=== PATIENT | male | born 1940 | race Caucasian/White ===

== ENCOUNTER 2016-07-17 10:27 | Outpatient (CLI) | payer OTHER ==
--- NOTE | 2016-07-17 12:23 | DIAGNOSTIC IMAGING REPORT ---
PROCEDURE: XR BONE LENGTH SCANOGRAM INDICATION: VEGA/NEPHEW PROTOCOL. Vega and Nephew protocol for preop knee replacement. TECHNIQUE: Limited MRI of the knee was performed with high-resolution PD sagittal images. In addition, AP radiographs of the lower extremity were obtained with scanogram markers. Diagnostic interpretation is not provided. IMPRESSION: 1. Preoperative Vega and Nephew protocol for knee prosthesis.
[2016-08-23] MEDS ORDERED: LEVOTHYROXINE88 MCG PO (14:55)
[2016-08-23] MEDS ORDERED: VENLAFAXINE HCL75 M1 PO (14:56)
[2016-08-23] MEDS ORDERED: FLOMAX0.4 MG PO (15:08)
[2016-08-23] MEDS ORDERED: ATORVASTATIN CA40 MG PO (16:05)
== END 2016-07-17 23:00 ==
LOC: MRI SRH 10:27
DX: M17.12 Unilateral primary osteoarthritis, left knee (principal)

== ENCOUNTER 2016-07-25 09:02 | Outpatient (CLI) | payer OTHER ==
--- NOTE | 2016-07-25 10:21 | DIAGNOSTIC IMAGING REPORT ---
PROCEDURE: XR BONE LENGTH SCANOGRAM INDICATION: OA LT KNEE,REDO Vega and Nephew protocol for preop knee replacement. TECHNIQUE: AP radiographs of the lower extremity were obtained with scanogram markers. Diagnostic interpretation is not provided. IMPRESSION: 1. Redo radiographs for Vega and Nephew protocol.
[2016-08-23] MEDS ORDERED: LEVOTHYROXINE88 MCG PO (14:55)
[2016-08-23] MEDS ORDERED: VENLAFAXINE HCL75 M1 PO (14:56)
[2016-08-23] MEDS ORDERED: FLOMAX0.4 MG PO (15:08)
[2016-08-23] MEDS ORDERED: ATORVASTATIN CA40 MG PO (16:05)
== END 2016-07-25 23:00 ==
LOC: XR SRH 09:02
DX: Z01.818 Encounter for other preprocedural examination (principal); M17.12 Unilateral primary osteoarthritis, left knee

== ENCOUNTER 2016-08-16 12:05 | Outpatient (CLI) | payer OTHER ==
--- NOTE | 2016-08-16 12:37 | DIAGNOSTIC IMAGING REPORT ---
PROCEDURE: XR CHEST 2 VIEW INDICATION: PRE OP TECHNIQUE: PA and lateral views. COMPARISON: Abdominal CT 08/21/2006 FINDINGS: Lungs are clear. Heart and mediastinum are normal. Thorax is normal. There is scarring at the left costophrenic angle which was present on the [address] CT. IMPRESSION: 1. Negative chest.
[2016-08-23] MEDS ORDERED: LEVOTHYROXINE88 MCG PO (14:55)
[2016-08-23] MEDS ORDERED: VENLAFAXINE HCL75 M1 PO (14:56)
[2016-08-23] MEDS ORDERED: FLOMAX0.4 MG PO (15:08)
[2016-08-23] MEDS ORDERED: ATORVASTATIN CA40 MG PO (16:05)
== END 2016-08-16 23:00 ==
LOC: RT SRH 12:05
DX: Z01.810 Encounter for preprocedural cardiovascular examination (principal); Z01.811 Encounter for preprocedural respiratory examination; R94.31 Abnormal electrocardiogram [ECG] [EKG]

== ENCOUNTER 2016-08-27 06:20 | Inpatient (IN) | payer OTHER ==
[~2016-08-27] VITALS: Ht 175.3 cm; Wt 128.3 kg
[2016-08-27] VITALS (8 sets, daily range): BP systolic 128–160; BP diastolic 68–92
[~2016-08-27 06:20] MED LIST: ATORVASTATIN CA40 MG PO; FLOMAX0.4 MG PO; LEVOTHYROXINE88 MCG PO; VENLAFAXINE HCL75 M1 PO
--- NOTE | 2016-08-27 10:21 | Postoperative Progress Note ---
Postop Progress Note Preoperate Diagnosis: OA left knee Postoperative Diagnosis: Same Surgeon: Jeffrey Cowan MD Anesthesia: General ETT Findings: OA left knee Procedure: Left TKA Complications? No Condition: Stable EBL: 150cc Blood Administered: 0 Specimen(s) removed? Yes Specimen removed/disposition: Bone and tissue left knee Grafts or Implants? Yes Graft/Implant type: TKA . (See nursing notes for details of grafts/implants)
--- NOTE | 2016-08-27 10:47 | DIAGNOSTIC IMAGING REPORT ---
PROCEDURE: XR KNEE 1 OR 2 VIEWS - LEFT INDICATION: TKA TECHNIQUE: AP and lateral views. COMPARISON: Left knee x-ray 07/12/2016. FINDINGS: Interval total knee arthroplasty with satisfactory positioning and alignment. Postsurgical changes of the soft tissues. Extensive atherosclerosis. IMPRESSION: 1. Left knee arthroplasty with normal postoperative appearance
--- NOTE | 2016-08-27 14:09 | OPERATIVE REPORT ---
DATE OF SURGERY: 08/27/2016 SURGEON: DELMI MUJICA MD PREOPERATIVE DIAGNOSIS: 1. Arthritis, left knee POSTOPERATIVE DIAGNOSIS: 1. Arthritis, left knee PROCEDURE PERFORMED: 1. The operation proposed was a left knee replacement and the operation performed the same. ESTIMATED BLOOD LOSS: About 150 mL. COMPLICATIONS: None. PATHOLOGY SPECIMENS: None. SURGICAL TECHNIQUE: The patient was taken to the operating room, where he was given a spinal anesthetic and some IV sedation and the tourniquet applied to the left thigh. The leg was prepped and draped in the usual sterile fashion. A longitudinal incision made directly anteriorly over the knee and carried down through subcutaneous tissue. A standard medial parapatellar approach to the knee was performed, the patella dislocated to the lateral side and the patient had exposure of the knee. The major portion of the infrapatellar fat pad was excised. The anterior cruciate ligament was excised. The patient had a cutting block placed on the distal femur, pinned in place and then we cut the distal femur using the supplied blocks from the [employer]. The patient then had the appropriate #6 distal femoral cutting block placed into position and anterior and posterior and chamfer cuts were made as well. The patient then had removal of the cutting block and then the resected pieces of bone. We placed a cutting block on the tibia and made the tibial cut and then placed the #7 size tibial baseplate into position and resected the osteophytes from the medial side and made the drill hole and cut out for the stem and fins with the supplied special step drill and osteotome from the [employer] set. We then went on to do a trial reduction and I could see that we would easily get him into full flexion, full extension. He was adequately stable with the [address] and we got the actual component, exsanguinated the limb, inflated the tourniquet to 350 mmHg, resected the patella, sized the patella. It was found that he was a 35, possibly 38 (I don't remember for sure) size patella. We made the drill hole for the patellar component, undercut the hole slightly with a small curette and then chamfered the margins medial and lateral with the patella where it was wider than it was tall to prevent impingement of the bone on the prosthetic femur. We removed the menisci in their entirety, then cleaned the cut surfaces of the bone and dried them thoroughly. Methylmethacrylate cement was vacuum mixed, placed on the tibia, down the hole for the tibial stem, and on the backside of the tibial component. It was seated in place. Extruded cement from around the margins removed. More cement was placed on the back side of the femoral component and on the cut surface of the femur, and the femoral component was seated in place and a 9 mm trial insert was placed on the tibial base plate. He was put in extension. The cleaned and dried surface of the patella then had some of the same methylmethacrylate cement placed on it and down in the drill holes and more cement was placed on the backside of the patellar component. It was clamped into position and extruded cement removed from around the margins and the knee held in extension with the clamp in place until the cement hardened. Once it did, we went back and checked and everything looked to be well. We got the actual 11 mm insert and placed it in position on the tibial baseplate and with this again he had good stability, good range of motion with full extension easily possible and flexion to at least 130 degrees. The patellar tracking was perfect. We closed then with the knee in about 50 to 60 degrees of flexion using #2 nonabsorbable braided suture, running from top to bottom and then oversewing with interrupted [id number] sutures along the medial margin of the patella. The torniquet was deflated, then the closure completed with 2-0 Vicryl running suture for the subcutaneous layer and subcuticular 3-0 Vicryl suture for the skin. The patient was injected prior to closure with a combination of local anesthetic and Decadron - Dr. Sawant's mixture, and after the closure was complete, he was dressed with Xeroform and ABD pads and wrapped with sterile Josr bandages loosely applied. He was awakened and taken to the recovery room in stable condition. Tissue removed were bone and tissue removed from the left knee including the cut surfaces of the femur, tibia, and patella. The menisci in their entirety, both medial and lateral, and the anterior cruciate ligament and the infrapatellar fat pad.
[2016-08-28 01:41] VITALS: BP 153/92
--- NOTE | 2016-08-28 04:01 | Progress Note ---
Subjective General VSS Afeb BP moderately elevated. Patient's pain is mild to moderate and he was able to walk to the BR with minimal assist just now. I was called because RN and Dr Kathleen were both unable to get a pulse and the O2 sats were unreliable. I too was unable to get a pulse in the LLE although he has intact light touch sensation and active DF/PF of the toes. Passive extension is not painful and the compartments are soft. His knee bandage was not unduly tight and the compartments are soft with minimal pedal edema. CT angiogram is ordered and about to be done. Will get vascular surgery consult/transfer depending on the results of the angiogram.
--- NOTE | 2016-08-28 05:10 | Progress Note ---
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 Patient's foot is actually warmer now then when I came in and he has light touch sensation and active DF/PF of the toes yet with only mild pain. Dr Cunningham was contacted and will consult as well.
[2016-08-28 07:00] VITALS: BP 157/76
--- NOTE | 2016-08-28 09:24 | Progress Note ---
Subjective General VSS Afeb BP 157/76 WBC 12.2 HGB 12.4 Platelets 149 BUN 26 CR 1.4 FBS 130 Exam unchanged. No pedal pulses. Foot mildly cool. Sensation and motor function intact. Minimal pedal edema. Bandage dry and clean. Patient seen by Dr gunter and rec transfer to vascular surgery at [facility]. Patient is willing. We will plan for transfer as soon as there an accepting physician.
--- NOTE | 2016-08-28 09:24 | Progress Note ---
Subjective General VSS Afeb BP 157/76 WBC 12.2 HGB 12.4 Platelets 149 BUN 26 CR 1.4 FBS 130 Exam unchanged. No pedal pulses. Foot mildly cool. Sensation and motor function intact. Minimal pedal edema. Bandage dry and clean. Patient seen by Dr gunter and rec transfer to vascular surgery at [facility]. Patient is willing. We will plan for transfer as soon as there an accepting physician.
--- NOTE | 2016-08-28 10:04 | DISCHARGE SUMMARY ---
ADMIT DATE: 08/27/2016 DISCHARGE DATE: 08/28/2016 DISCHARGE DIAGNOSIS: 1. BRIEF HISTORY: The patient was admitted to the hospital on 08/27/2016 for knee replacement surgery. HOSPITAL COURSE: He has a history of osteoarthritis and underwent a surgery on the day of admission without difficulty. Postoperatively, he had adequate pulses to the left lower extremity, but during the night, the nurse contacted first Dr. Kathleen and then Dr. Kathleen myself that they had loss of pulses to the left lower extremity and Dr. Kathleen was kind enough to come in and then called me and I came in about 3:30 this morning. At that point, the patient had no Doppler pulses to the left lower extremity, did have intact sensation to light touch throughout the foot and was able to actively dorsiflex and plantar flex the toes. He had no undue discomfort with passive extension of the toes. There is just minimal pedal edema distally and has not any undue edema at the knee, maybe 1-2+ at most and a bandage was not unduly tight and it was rewrapped a little bit looser but really did not change anything. Taking off his JENNIFER hose did seem to help a bit, but the patient was not having undue pain at all, in fact, he says his back hurt worse than his leg did and his knee was feeling pretty good. When I came in during the night, he was getting up and going to the bathroom, was able to ambulate to the bathroom with just minimal assistance and with weightbearing as tolerated to the knee. Nevertheless, he has lost pulses in the leg and so he was taken to CT angiogram. The radiologist feels he has an occlusion of the superficial femoral artery and Dr. Degroot was contacted. He came in earlier this morning and evaluated the patient and recommended he be transferred to [facility] for interventional radiology or vascular consultation and I would agree. The patient has been informed of the results of the studies and the decision that he should be transferred and he agrees and is certainly willing go. At this point, he is stable. His hemoglobin was 12.4 today. His platelets are 149,000. Creatinine was 1.4, BUN 26, after having had a study. His fasting blood sugar 130. DISCHARGE INSTRUCTIONS/MEDICATIONS: He will be transferred then to [facility] in [place] as soon as an accepting physician is available.
--- NOTE | 2016-08-28 11:03 | DIAGNOSTIC IMAGING REPORT ---
PROCEDURE: CTA LOWER EXTREMITY W/CONTRAST INDICATION: R/O OBSTRUCTION POP ART send pulse distal left lower extremity status post left knee arthroplasty. TECHNIQUE: Thin slice axial CT images were obtained through the lower extremities following uncomplicated administration of 125 Isovue 370 IV contrast. Coronal and sagittal MIP reformations were created. COMPARISON: None. FINDINGS: Limited study secondary to beam-hardening artifact from the left knee arthroplasty. The ankles and feet are not included on the study. The coronal images imply a very tortuous course of both external iliac arteries. Exam did not include the common iliac bifurcation. Left side: Moderate calcific atherosclerosis of the common and superficial femoral arteries. Marked atherosclerosis of the calf arteries. There is thrombosis of the distal superficial femoral artery and proximal popliteal artery. Trace amount of flow is seen centrally in the mid to distal popliteal artery. There is no arterial flow visible at the trifurcation. Diminutive, irregular posterior tibial artery is partially reconstituted in the midcalf, then dissipates. A prominent peroneal artery is reconstituted also in the mid calf. Anterior tibial artery is not visible. Small proximal popliteal artery aneurysm measuring 1.9 x 1.7 cm. Left knee arthroplasty surgical changes including subcutaneous gas in the superficial and deep muscle, metallic artifacts in the anterior subcutaneous tissue, and a small infrapatellar bursal effusion. Right side: Moderate calcific atherosclerosis of the common and superficial femoral arteries. Marked atherosclerosis of the calf arteries. Partially thrombosed popliteal artery aneurysm measuring 1.8 x 1.6 cm with an eccentric mural thrombus. The anterior tibial artery becomes not visible a few centimeters after the trifurcation. There is a prominent, patent peroneal artery and mildly diminutive posterior tibial artery. IMPRESSION: 1. Thrombosis of the left distal SFA, popliteal artery, and proximal calf arteries. No flow in the left anterior tibial artery to the extent visualized. 2. Small left proximal popliteal artery aneurysm. 3. Occluded distal right anterior tibial artery. 4. Status post left knee arthroplasty. 5. Moderate to marked calcific atherosclerosis throughout the lower extremities. 6. Tortuous external iliac arteries. 7. Preliminary report by Dr. Ari Perez of [facility] / ?.?? radiology.
--- NOTE | 2016-08-28 13:07 | CONSULTATION REPORT ---
DATE OF CONSULTATION: 08/28/2016 CHIEF COMPLAINT: 1. Cold left foot HISTORY OF PRESENT ILLNESS: The patient is a 76-year-old man who came to the hospital yesterday for an elective left knee replacement. The knee replacement was carried out uneventfully. Early this morning, the patient had some pain in the calf and on inspection was noticed to have poor perfusion in the forefoot and had no palpable pulses. Dr. Cowan saw the patient. At that time, the patient did not report pain in his foot and mainly had pain in the incision and near the knee replacement area. Preoperatively he reportedly did have a pulse in his foot. MEDICAL/SURGICAL HISTORY: The patient has a past history of coronary angioplasty and coronary arterial disease with angioplasty around 2002. Past medical history additionally includes hyperlipidemia, sleep apnea, insomnia, depression, and BPH. MEDICATIONS: 1. Levothyroxine 88 mcg per day. 2. Venlafaxine 75 mg b.i.d. ALLERGIES: 1. NONE TO MEDICATIONS. SOCIAL HISTORY: The patient is retired. He does not smoke cigarettes. He is . FAMILY HISTORY: Noncontributory for vascular disease. I believe I have seen this patient in the past for endoscopic procedures. REVIEW OF SYSTEMS: A multipoint review of systems was obtained on 08/27/[address] Cowan. PHYSICAL EXAMINATION: The patient was alert and cooperative and did not appear to be in acute distress. His left leg was slightly elevated. Comparison of the 2 legs demonstrated that the right toes were pink and the left toe was waxy and poorly perfused in the forefoot. He was, however, not in severe pain. I could palpate pulses in the foot with the hand-held Doppler was also unable to get a decent Doppler signal at either of the pedal pulses. The ankle seems to be reasonably warm and the hindfoot also seemed to have some pinkness and capillary refill, but the forefoot was poorly perfused. Palpation of the groin revealed an intact femoral pulse, which is easily palpable. The knee could not be well examined with a fresh dressing and surgery over it. LAB/IMAGING: Dr. Cowan reported that a CT angiogram was obtained already demonstrating occlusion of the femoral artery in the presence of atheromatous disease. IMPRESSION: 1. Acute vascular compromise of left leg in the setting of previous atheromatous stenosis. PLAN: I have discussed this patient's situation with both Dr. Lira from Interventional Radiology as well as Dr. Yost's service in the form of Dawna Silver PA-C. Interventional Radiology did not believe that it was safe to do a thrombolytic treatment in the setting of fresh major surgery on the same limb. They did, however, believe that an angiogram and some type of embolus removal could be a possibility and that this might be the first step. They recommended contacting the Vascular Surgery Service as surgical back up was needed. To this end, I called the vascular surgery service and talked to Dawna Silver PA-C who is being supervised by Dr. Yost who is the on-call vascular surgeon. She took the information and called back accepting the transfer to the vascular service. I talked to the patient about the transfer and he is agreeable to it. He is aware that there is vascular compromise of his leg that seems to be acute and that urgent intervention is necessary.
== END 2016-08-28 10:30 | disposition short-term general hospital (02) | DRG 470 ==
LOC: SCU SRH 06:20 → U SRH 07:30 → ACUTE2 SRH 11:32
PROVIDERS: ADMIT Orthopaedic Surgery
PROC: 0SRD0J9 Replacement of Left Knee Joint with Synthetic Substitute, Cemented, Open Approach (ICD-10-PCS; principal; 2016-08-27 07:30)
DX: M17.12 Unilateral primary osteoarthritis, left knee (principal); T81.718A Complication of other artery following a procedure, not elsewhere classified, initial encounter; I74.3 Embolism and thrombosis of arteries of the lower extremities; I70.202 Unspecified atherosclerosis of native arteries of extremities, left leg; E03.9 Hypothyroidism, unspecified; E78.5 Hyperlipidemia, unspecified; I25.10 Atherosclerotic heart disease of native coronary artery without angina pectoris; Z95.5 Presence of coronary angioplasty implant and graft